=== PATIENT | female | born 1950 | race Caucasian/White ===

== ENCOUNTER 2022-08-24 09:34 | Inpatient (IN) ==
[2022-08-24] MEDS ORDERED: LORazepam 2 mg VIAL 1 ml ONE (10:52)
[2022-08-24] MEDS ORDERED: Haloperidol 5 mg/ml SDV IV/IM 5 MG/ML AMP IM ONE (11:56)
[2022-08-24] MEDS ORDERED: Lorazepam PYXIS KEY PRN (11:56)
[2022-08-24] MEDS ORDERED: LORazepam 2 mg VIAL 1 ml IM ONE (11:56)
[2022-08-24 15:50] LABS: ABS Basophils 0.1 10^3/uL (0.0-0.1); ABS Eosinophils 0.1 10^3/uL (0.0-0.5); ABS Lymphocytes 1.4 10^3/uL (1.0-4.8); ABS Monocytes 0.5 10^3/uL (0.0-0.9); ABS Neutrophils 4.5 10^3/uL (1.5-7.6); ABS Nucleated RBC 0.01 10^3/ul; Eosinophil % 1.8 %; Hematocrit 36.7 % (35-45); Hemoglobin 12.1 g/dL (11.5-14.3); Lymphocyte % 21.7 %; Mean Corpuscular Hemoglobin 29.4 pg (27-33); Mean Corpuscular Volume 89.2 fL (80-97); Mean Platelet Volume 6.8 fL (7.5-11.2); Nucleated Red Blood Cells % 0.1 /100 WBC (0.0-0.4); Platelet Count 207 10^3/uL (150-450); Red Blood Count 4.11 10^6/uL (3.63-4.92); Red Cell Distribution Width 14.2 % (12-17); White Blood Count 6.6 10^3/uL (3.8-11.8)
[2022-08-24 16:06] LABS: ALT 16 U/L (7-52); AST 14 U/L (13-39); Albumin 3.4 g/dL (3.2-5.2); Albumin/Globulin Ratio 1.1 (1-3); Alkaline Phosphatase 76 U/L (35-149); Anion Gap 5 mmol/L (2-16); Blood Urea Nitrogen 14 mg/dL (6-24); CO2 Carbon Dioxide 26 mmol/L (22-32); Calcium 8.9 mg/dL (8.6-10.3); Chloride 106 mmol/L (101-111); Creatinine, Serum 1.47 mg/dL (0.51-0.95); Glucose 108 mg/dL (70-100); Potassium 4.3 mmol/L (3.5-5.0); Sodium 137 mmol/L (135-145); Total Protein 6.4 g/dL (6.4-8.9); eGFR CKD-EPI 37.7 (>60)
[2022-08-24 16:23] LABS: Acetaminophen < 15 mcg/mL; Alcohol, S < 13 mg/dL (<13); Salicylate < 2.50 mg/dL (<30)
[2022-08-24 16:37] LABS: TSH Ultra Thyroid Stim Horm 5.39 mcIU/mL (0.34-5.60)
[2022-08-24] MEDS ORDERED: OLANZapine 5 mg TAB *ODT PO ONE (20:35)
[2022-08-25] MEDS ORDERED: OLANZapine 5 mg TAB *ODT PO ONE (20:37)
[2022-08-25] MEDS ORDERED: Albuterol/Ipratropium NEB.SOL (2.5/0.5 MG) 3 ML NEB.SOLN INH ONE (22:31)
[2022-08-25] MEDS ORDERED: Furosemide 40 mg/4 ml IV VIAL IV SLOW PU ONE (22:48)
[2022-08-25 23:10] LABS: Venous Bicarbonate HCO3 22.9 mmol/L (24-28)
[2022-08-25 23:17] LABS: ABS Eosinophils 0.2 10^3/uL (0.0-0.5); ABS Lymphocytes 1.7 10^3/uL (1.0-4.8); ABS Monocytes 0.5 10^3/uL (0.0-0.9); ABS Neutrophils 4.7 10^3/uL (1.5-7.6); Eosinophil % 2.2 %; Hematocrit 38.6 % (35-45); Hemoglobin 12.6 g/dL (11.5-14.3); Lymphocyte % 23.6 %; Mean Corpuscular Hemoglobin 28.6 pg (27-33); Mean Corpuscular Hgb Conc 32.7 g/dL (31-36); Mean Corpuscular Volume 87.5 fL (80-97); Mean Platelet Volume 6.9 fL (7.5-11.2); Nucleated Red Blood Cells % 0.1 /100 WBC (0.0-0.4); Platelet Count 253 10^3/uL (150-450); Red Blood Count 4.41 10^6/uL (3.63-4.92); Red Cell Distribution Width 13.8 % (12-17)
[2022-08-25 23:27] LABS: Calcium 9.1 mg/dL (8.6-10.3); Creatinine, Serum 1.43 mg/dL (0.51-0.95)
[2022-08-25] MEDS ORDERED: LORazepam 2 mg VIAL 1 ml IV PUSH ONE (23:37)
[2022-08-25] MEDS ORDERED: Lorazepam PYXIS KEY PRN (23:37)
[2022-08-25 23:44] LABS: Urine Appearance Cloudy; Urine Bilirubin Negative (Negative); Urine Blood 2+ (Negative); Urine Color Straw; Urine Glucose Negative (Negative); Urine Ketones Negative (Negative); Urine Nitrite Negative (Negative); Urine Protein Negative (Negative); Urine Specific Gravity 1.004 (1.002-1.030); Urine Urobilinogen Negative (Negative)
[2022-08-25 23:47] LABS: Urine Bacteria 2+ (Absent); Urine Red Blood Cell Trace(0-2/hpf) (Absent); Urine Squamous Epithelial Cell Present (Absent); Urine White Blood Cell 3+(>20/hpf) (Absent)
[2022-08-25 23:57] LABS: Urine Benzodiazepine Screen None Detected (None Detect); Urine Cannabinoids Screen None Detected (None Detect); Urine Opiates Screen None Detected (None Detect)
[2022-08-26] MEDS ORDERED: LORazepam 2 mg VIAL 1 ml IV PUSH ONE (00:15)
[2022-08-26] MEDS ORDERED: Enoxaparin 100 MG/ML SYR SUBCUT SCH (01:00)
[2022-08-26] MEDS ORDERED: Sulfur Hexaflouride MICROSPHR 25 MG VIAL ONE (09:45)
[2022-08-26] MEDS: Furosemide 20 mg/2 ml IV VIAL IV SCH ×2 (13:37→18:31)
[2022-08-26] MEDS: CMCS:Darifenacin 15 mg ER TAB (NF) PO SCH (13:41)
[2022-08-26] MEDS ORDERED: Lorazepam PYXIS KEY PRN (14:09)
[2022-08-26] MEDS: Enoxaparin 40 MG/0.4 ML SYR SUBCUT SCH (18:29)
[2022-08-27 06:13] LABS: ABS Basophils 0.1 10^3/uL (0.0-0.1); ABS Eosinophils 0.2 10^3/uL (0.0-0.5); ABS Lymphocytes 2.2 10^3/uL (1.0-4.8); ABS Monocytes 0.5 10^3/uL (0.0-0.9); ABS Neutrophils 2.9 10^3/uL (1.5-7.6); Eosinophil % 3.5 %; Hematocrit 34.9 % (35-45); Hemoglobin 11.8 g/dL (11.5-14.3); Lymphocyte % 37.3 %; Mean Corpuscular Hemoglobin 29.6 pg (27-33); Mean Corpuscular Hgb Conc 33.7 g/dL (31-36); Mean Corpuscular Volume 87.9 fL (80-97); Mean Platelet Volume 6.9 fL (7.5-11.2); Platelet Count 203 10^3/uL (150-450); Red Blood Count 3.98 10^6/uL (3.63-4.92); Red Cell Distribution Width 13.7 % (12-17); White Blood Count 5.9 10^3/uL (3.8-11.8)
[2022-08-27 06:29] LABS: Calcium 8.5 mg/dL (8.6-10.3); Creatinine, Serum 1.37 mg/dL (0.51-0.95); Potassium 3.5 mmol/L (3.5-5.0)
[2022-08-27] MEDS: CMCS:Darifenacin 15 mg ER TAB (NF) PO SCH (09:41)
[2022-08-27 10:34] LABS: HDL Cholesterol 34.6 mg/dL
[2022-08-27] MEDS ORDERED: Potassium Chlor 20 meq TAB.ER PO ONE (10:39)
[2022-08-27 12:14] LABS: High Sensitivity Troponin 1 Hr 720 pg/mL (<15)
[2022-08-27] MEDS: Furosemide 20 mg/2 ml IV VIAL IV SCH ×2 (14:38→17:47)
[2022-08-27] MEDS: Enoxaparin 40 MG/0.4 ML SYR SUBCUT SCH (17:47)
[2022-08-28 07:31] LABS: ABS Basophils 0.1 10^3/uL (0.0-0.1); ABS Eosinophils 0.2 10^3/uL (0.0-0.5); ABS Lymphocytes 1.9 10^3/uL (1.0-4.8); ABS Monocytes 0.4 10^3/uL (0.0-0.9); ABS Neutrophils 4.7 10^3/uL (1.5-7.6); Eosinophil % 2.7 %; Hematocrit 36.1 % (35-45); Lymphocyte % 25.5 %; Mean Corpuscular Hemoglobin 29.1 pg (27-33); Mean Corpuscular Hgb Conc 33.4 g/dL (31-36); Mean Corpuscular Volume 87.2 fL (80-97); Nucleated Red Blood Cells % 0.1 /100 WBC (0.0-0.4); Platelet Count 258 10^3/uL (150-450); Red Blood Count 4.14 10^6/uL (3.63-4.92); White Blood Count 7.3 10^3/uL (3.8-11.8)
[2022-08-28 07:51] LABS: Albumin 3.4 g/dL (3.2-5.2); Albumin/Globulin Ratio 1.2 (1-3); Calcium 8.7 mg/dL (8.6-10.3); Creatinine, Serum 1.48 mg/dL (0.51-0.95); Globulin 2.9 g/dL (2-4); Magnesium 1.7 mg/dL (1.9-2.7); Potassium 3.6 mmol/L (3.5-5.0); Total Bilirubin 0.2 mg/dL (0.2-1.0); Total Protein 6.3 g/dL (6.4-8.9); eGFR CKD-EPI 37.4 (>60)
[2022-08-28] MEDS ORDERED: Regadenoson 0.4 MG/5 ML SYRINGE ONE (09:42)
[2022-08-28] MEDS: CMCS:Darifenacin 15 mg ER TAB (NF) PO SCH (10:27)
[2022-08-28] MEDS: Furosemide 20 mg/2 ml IV VIAL IV SCH (13:43)
[2022-08-28] MEDS: Enoxaparin 40 MG/0.4 ML SYR SUBCUT SCH (17:15)
[2022-08-29 05:48] LABS: ABS Eosinophils 0.1 10^3/uL (0.0-0.5); ABS Lymphocytes 1.5 10^3/uL (1.0-4.8); ABS Monocytes 0.6 10^3/uL (0.0-0.9); ABS Neutrophils 4.3 10^3/uL (1.5-7.6); ABS Nucleated RBC 0.01 10^3/ul; Eosinophil % 2.2 %; Hematocrit 35.5 % (35-45); Lymphocyte % 23.1 %; Mean Corpuscular Hemoglobin 29.6 pg (27-33); Mean Corpuscular Hgb Conc 33.8 g/dL (31-36); Mean Corpuscular Volume 87.7 fL (80-97); Mean Platelet Volume 6.9 fL (7.5-11.2); Nucleated Red Blood Cells % 0.1 /100 WBC (0.0-0.4); Platelet Count 205 10^3/uL (150-450); Red Blood Count 4.05 10^6/uL (3.63-4.92); Red Cell Distribution Width 13.8 % (12-17); White Blood Count 6.6 10^3/uL (3.8-11.8)
[2022-08-29 06:05] LABS: Calcium 8.7 mg/dL (8.6-10.3); Creatinine, Serum 1.38 mg/dL (0.51-0.95); Magnesium 1.9 mg/dL (1.9-2.7); Potassium 3.7 mmol/L (3.5-5.0); eGFR CKD-EPI 40.7 (>60)
[2022-08-29] MEDS: CMCS:Darifenacin 15 mg ER TAB (NF) PO SCH (07:51)
[2022-08-29] MEDS: Enoxaparin 40 MG/0.4 ML SYR SUBCUT SCH (18:18)
[2022-08-30] MEDS: CMCS:Darifenacin 15 mg ER TAB (NF) PO SCH (10:18)
[2022-08-30] MEDS: Enoxaparin 40 MG/0.4 ML SYR SUBCUT SCH (17:41)
[2022-08-31] MEDS: CMCS:Darifenacin 15 mg ER TAB (NF) PO SCH (09:11)
[2022-08-31] MEDS: Enoxaparin 40 MG/0.4 ML SYR SUBCUT SCH (17:01)
[2022-09-01] MEDS: CMCS:Darifenacin 15 mg ER TAB (NF) PO SCH (08:23)
[2022-09-01] MEDS: Enoxaparin 40 MG/0.4 ML SYR SUBCUT SCH (17:13)
[2022-09-02] MEDS: CMCS:Darifenacin 15 mg ER TAB (NF) PO SCH (08:20)
[2022-09-02] MEDS: Enoxaparin 40 MG/0.4 ML SYR SUBCUT SCH (16:47)
[2022-09-02] MEDS ORDERED: Ketamine HCL 50 mg/ml 10 ml VIAL (500 MG) ONE (20:28)
[2022-09-02] MEDS ORDERED: Rocuronium 50 mg VIAL 10 mg/ml 5 ml VIAL (50 mg) ONE (20:28)
[2022-09-02] MEDS ORDERED: fentaNYL 100 mcg/2 ml 50 MCG/ML VIAL IV SLOW PU ONE ×2 (21:10→22:00)
[2022-09-02] MEDS ORDERED: fentaNYL 100 mcg/2 ml 50 MCG/ML VIAL ONE ×2 (21:12→22:02)
[2022-09-02 21:35] LABS: PCO2 Arterial 72 mmHg (35-45); PO2 Arterial 54 mmHg (80-100)
[2022-09-02] MEDS ORDERED: Midazolam 2 mg/2 ml VIAL 1 mg/ml 2 ml VIAL (2 mg) ONE (21:37)
[2022-09-02] MEDS ORDERED: Midazolam 2 mg/2 ml VIAL 1 mg/ml 2 ml VIAL (2 mg) IV SLOW PU ONE (21:38)
[2022-09-02] MEDS ORDERED: Furosemide 40 mg/4 ml IV VIAL ONE (21:38)
[2022-09-02] MEDS ORDERED: Furosemide 40 mg/4 ml IV VIAL IV SLOW PU ONE (21:39)
[2022-09-02] MEDS ORDERED: Propofol 10 mg/ml 100 ML BTL 1,000 MG/100 ML BTL ONE (21:44)
[2022-09-02 21:55] LABS: ABS Basophils 0.1 10^3/uL (0.0-0.1); ABS Eosinophils 0.1 10^3/uL (0.0-0.5); ABS Monocytes 0.5 10^3/uL (0.0-0.9); ABS Neutrophils 12.9 10^3/uL (1.5-7.6); ABS Nucleated RBC 0.01 10^3/ul; Eosinophil % 0.5 %; Hematocrit 40.2 % (35-45); Lymphocyte % 22.6 %; Mean Corpuscular Hgb Conc 32.4 g/dL (31-36); Mean Corpuscular Volume 89.4 fL (80-97); Platelet Count 317 10^3/uL (150-450); Red Cell Distribution Width 14.4 % (12-17); White Blood Count 17.6 10^3/uL (3.8-11.8)
[2022-09-02] MEDS ORDERED: fentaNYL INFUSION 50 mcg/mL VL 2,500 MCG/50 ML VIAL IV SCH (22:00)
[2022-09-02] MEDS: Propofol 10 mg/ml 100 ML BTL 1,000 MG/100 ML BTL IV SCH ×2 (22:03→23:57)
[2022-09-02 22:10] LABS: Albumin 3.4 g/dL (3.2-5.2); Albumin/Globulin Ratio 1.2 (1-3); Calcium 8.9 mg/dL (8.6-10.3); Creatinine, Serum 1.29 mg/dL (0.51-0.95); Globulin 2.9 g/dL (2-4); Potassium 4.3 mmol/L (3.5-5.0); Total Bilirubin 0.2 mg/dL (0.2-1.0); Total Protein 6.3 g/dL (6.4-8.9); eGFR CKD-EPI 44.1 (>60)
[2022-09-02] MEDS ORDERED: Norepinephrine 16MCG/ML BAGD5W 4,000 MCG/250 ML BAG IV ONE (23:16)
[2022-09-02] MEDS ORDERED: Piperacillin/Tazobac ADVAN 3.375 GM in NS 0.9% 100 ml BAG 100 ML IV ONE (23:32)
[2022-09-02] MEDS ORDERED: Zosyn per Pharmacy NOTE FOLLOW UP SCH (23:45)
[2022-09-02] MEDS ORDERED: Norepinephrine 16MCG/ML BAGD5W 4,000 MCG/250 ML BAG IV SCH (23:45)
[2022-09-03 00:04] LABS: High Sensitivity Troponin 1 Hr 330 pg/mL (<15)
[2022-09-03 00:43] LABS: Urine Appearance Cloudy; Urine Bilirubin Negative (Negative); Urine Blood Negative (Negative); Urine Color Yellow; Urine Glucose Negative (Negative); Urine Ketones Negative (Negative); Urine Nitrite Negative (Negative); Urine Protein Negative (Negative); Urine Specific Gravity 1.009 (1.002-1.030); Urine Urobilinogen Negative (Negative)
[2022-09-03 00:47] LABS: Urine Bacteria 1+ (Absent); Urine Red Blood Cell Trace(0-2/hpf) (Absent); Urine Squamous Epithelial Cell Present (Absent); Urine White Blood Cell 1+(6-10/hpf) (Absent)
[2022-09-03] MEDS: Propofol 10 mg/ml 100 ML BTL 1,000 MG/100 ML BTL IV SCH ×5 (03:24→19:58)
[2022-09-03] MEDS: Norepinephrine 16MCG/ML BAGD5W 4,000 MCG/250 ML BAG IV SCH ×2 (03:57→09:53)
[2022-09-03 04:13] LABS: Hematocrit 37.1 % (35-45); Mean Corpuscular Hemoglobin 28.4 pg (27-33); Mean Corpuscular Hgb Conc 32.5 g/dL (31-36); Mean Corpuscular Volume 87.4 fL (80-97); Mean Platelet Volume 6.8 fL (7.5-11.2); Platelet Count 273 10^3/uL (150-450); Red Blood Count 4.24 10^6/uL (3.63-4.92); Red Cell Distribution Width 14.1 % (12-17)
[2022-09-03 04:38] LABS: Albumin 3.1 g/dL (3.2-5.2); Calcium 8.3 mg/dL (8.6-10.3); Magnesium 1.8 mg/dL (1.9-2.7); Potassium 4.5 mmol/L (3.5-5.0); Total Bilirubin 0.3 mg/dL (0.2-1.0)
[2022-09-03 04:44] LABS: Albumin/Globulin Ratio 1.2 (1-3); Creatinine, Serum 1.37 mg/dL (0.51-0.95); Globulin 2.5 g/dL (2-4); Total Protein 5.6 g/dL (6.4-8.9)
[2022-09-03] MEDS: Chlorhexidine MOUTHWASH 0.12% 15 ML UDC TOPICAL SCH ×7 (05:27→20:04)
[2022-09-03 05:38] LABS: ABS Basophils 0.1 10^3/uL (0.0-0.1); ABS Lymphocytes 1.9 10^3/uL (1.0-4.8); ABS Monocytes 0.8 10^3/uL (0.0-0.9); ABS Neutrophils 16.2 10^3/uL (1.5-7.6); ABS Nucleated RBC 0.03 10^3/ul; Eosinophil % 0.1 %; Lymphocyte % 10.2 %; Nucleated Red Blood Cells % 0.1 /100 WBC (0.0-0.4)
[2022-09-03] MEDS: CMCS:Darifenacin 15 mg ER TAB (NF) PO SCH (08:41)
[2022-09-03] MEDS: Valproic Acid LIQ 250 MG/5 ML UDC PO SCH ×3 (10:10→20:05)
[2022-09-03] MEDS ORDERED: ZOSYN 3.375 GM x ONE DOSE over 30 miuntes IV (11:00)
[2022-09-03] MEDS ORDERED: Piperacillin/Tazobac ADVAN 3.375 GM in NS 0.9% 100 ml BAG 100 ML IV SCH (11:00)
[2022-09-03] MEDS ORDERED: Sulfur Hexaflouride MICROSPHR 25 MG VIAL ONE (11:43)
[2022-09-03 14:07] LABS: High Sensitivity Troponin 3 Hr 315 pg/mL (<15)
[2022-09-03] MEDS: Piperacillin/Tazobac ADVAN 3.375 GM in NS 0.9% 100 ml BAG 100 ML IV SCH (16:29)
[2022-09-03] MEDS: Enoxaparin 40 MG/0.4 ML SYR SUBCUT SCH (17:09)
[2022-09-03] MEDS ORDERED: Valproic Acid IV 1,000 MG in NS 0.9% 100 ml BAG 100 ML IVPB ONE (17:45)
[2022-09-04] MEDS: Chlorhexidine MOUTHWASH 0.12% 15 ML UDC TOPICAL SCH ×6 (01:05→20:31)
[2022-09-04] MEDS: Propofol 10 mg/ml 100 ML BTL 1,000 MG/100 ML BTL IV SCH ×5 (01:11→20:30)
[2022-09-04] MEDS: Piperacillin/Tazobac ADVAN 3.375 GM in NS 0.9% 100 ml BAG 100 ML IV SCH ×3 (01:49→17:02)
[2022-09-04 04:12] LABS: ABS Monocytes 0.2 10^3/uL (0.0-0.9); ABS Neutrophils 11.4 10^3/uL (1.5-7.6); Eosinophil % 0.2 %; Hematocrit 34.1 % (35-45); Hemoglobin 11.4 g/dL (11.5-14.3); Mean Corpuscular Hemoglobin 29.2 pg (27-33); Mean Corpuscular Hgb Conc 33.3 g/dL (31-36); Mean Corpuscular Volume 87.9 fL (80-97); Platelet Count 183 10^3/uL (150-450); Red Blood Count 3.88 10^6/uL (3.63-4.92); Red Cell Distribution Width 14.2 % (12-17); White Blood Count 12.6 10^3/uL (3.8-11.8)
[2022-09-04] MEDS: Norepinephrine 16MCG/ML BAGD5W 4,000 MCG/250 ML BAG IV SCH ×2 (04:51→17:15)
[2022-09-04 05:43] LABS: Albumin/Globulin Ratio 1.1 (1-3); Calcium 8.6 mg/dL (8.6-10.3); Creatinine, Serum 1.19 mg/dL (0.51-0.95); Globulin 2.8 g/dL (2-4); Magnesium 2.1 mg/dL (1.9-2.7); Total Bilirubin 0.4 mg/dL (0.2-1.0); Total Protein 5.8 g/dL (6.4-8.9); eGFR CKD-EPI 48.6 (>60)
[2022-09-04] MEDS ORDERED: Iodixanol (CONTRAST) 320 MG/ML 100 ML SDV IV ONE (08:17)
[2022-09-04] MEDS: Valproic Acid LIQ 250 MG/5 ML UDC PO SCH ×3 (08:30→21:06)
[2022-09-04] MEDS: CMCS:Darifenacin 15 mg ER TAB (NF) PO SCH ×2 (08:30→08:51)
[2022-09-04 12:30] LABS: INR 1.17 (0.88-1.18)
[2022-09-04] MEDS ORDERED: Furosemide 40 mg/4 ml IV VIAL IV ONE (13:02)
[2022-09-04 18:24] LABS: Calcium 8.6 mg/dL (8.6-10.3); Creatinine, Serum 1.21 mg/dL (0.51-0.95); Potassium 3.7 mmol/L (3.5-5.0); eGFR CKD-EPI 47.6 (>60)
[2022-09-05] MEDS: Piperacillin/Tazobac ADVAN 3.375 GM in NS 0.9% 100 ml BAG 100 ML IV SCH ×3 (00:06→17:12)
[2022-09-05] MEDS: Chlorhexidine MOUTHWASH 0.12% 15 ML UDC TOPICAL SCH ×3 (01:02→08:38)
[2022-09-05] MEDS: Propofol 10 mg/ml 100 ML BTL 1,000 MG/100 ML BTL IV SCH ×2 (01:02→05:36)
[2022-09-05 04:27] LABS: ABS Lymphocytes 1.2 10^3/uL (1.0-4.8); ABS Monocytes 0.4 10^3/uL (0.0-0.9); ABS Neutrophils 10.5 10^3/uL (1.5-7.6); Eosinophil % 0.1 %; Hematocrit 31.6 % (35-45); Hemoglobin 10.5 g/dL (11.5-14.3); Lymphocyte % 9.7 %; Mean Corpuscular Hemoglobin 29.1 pg (27-33); Mean Corpuscular Hgb Conc 33.3 g/dL (31-36); Mean Corpuscular Volume 87.4 fL (80-97); Mean Platelet Volume 6.7 fL (7.5-11.2); Platelet Count 167 10^3/uL (150-450); Red Blood Count 3.62 10^6/uL (3.63-4.92); White Blood Count 12.1 10^3/uL (3.8-11.8)
[2022-09-05] MEDS: Norepinephrine 16MCG/ML BAGD5W 4,000 MCG/250 ML BAG IV SCH (04:37)
[2022-09-05 04:44] LABS: Albumin 2.8 g/dL (3.2-5.2); Calcium 8.2 mg/dL (8.6-10.3); Creatinine, Serum 1.26 mg/dL (0.51-0.95); Globulin 2.7 g/dL (2-4); Magnesium 2.2 mg/dL (1.9-2.7); Phosphorus 4.6 mg/dL (2.5-5.0); Potassium 3.9 mmol/L (3.5-5.0); Total Bilirubin 0.3 mg/dL (0.2-1.0); Total Protein 5.5 g/dL (6.4-8.9); eGFR CKD-EPI 45.4 (>60)
[2022-09-05] MEDS ORDERED: Furosemide 40 mg/4 ml IV VIAL IV ONE (09:05)
[2022-09-05] MEDS: CMCS:Darifenacin 15 mg ER TAB (NF) PO SCH (09:17)
[2022-09-05] MEDS: Valproic Acid LIQ 250 MG/5 ML UDC PO SCH (09:19)
[2022-09-05 15:21] LABS: Calcium 8.3 mg/dL (8.6-10.3); Creatinine, Serum 1.27 mg/dL (0.51-0.95); Potassium 3.7 mmol/L (3.5-5.0); eGFR CKD-EPI 44.9 (>60)
[2022-09-05] MEDS ORDERED: Potassium Chloride LIQUID 20 MEQ/15 ML LIQUID PO ONE (17:16)
[2022-09-05] MEDS ORDERED: Potassium Chlor 20 meq TAB.ER PO ONE (17:22)
[2022-09-05] MEDS: Valproic Acid IV 500 MG in NS 0.9% 100 ml BAG 100 ML IVPB SCH (17:24)
[2022-09-05] MEDS: KCL 20 MEQ/100 ML IVPREMIX 20 MEQ/100 ML BAG IV SCH ×2 (18:19→20:28)
[2022-09-06] MEDS: Piperacillin/Tazobac ADVAN 3.375 GM in NS 0.9% 100 ml BAG 100 ML IV SCH ×3 (00:40→18:39)
[2022-09-06] MEDS: Valproic Acid IV 500 MG in NS 0.9% 100 ml BAG 100 ML IVPB SCH ×2 (00:46→04:29)
[2022-09-06 04:39] LABS: ABS Basophils 0.1 10^3/uL (0.0-0.1); ABS Eosinophils 0.5 10^3/uL (0.0-0.5); ABS Lymphocytes 1.8 10^3/uL (1.0-4.8); ABS Monocytes 0.4 10^3/uL (0.0-0.9); ABS Neutrophils 5.3 10^3/uL (1.5-7.6); ABS Nucleated RBC 0.01 10^3/ul; Eosinophil % 5.9 %; Hematocrit 32.5 % (35-45); Hemoglobin 10.7 g/dL (11.5-14.3); Lymphocyte % 22.5 %; Mean Corpuscular Hemoglobin 28.8 pg (27-33); Mean Corpuscular Hgb Conc 32.8 g/dL (31-36); Mean Corpuscular Volume 87.6 fL (80-97); Mean Platelet Volume 7.3 fL (7.5-11.2); Nucleated Red Blood Cells % 0.1 /100 WBC (0.0-0.4); Platelet Count 119 10^3/uL (150-450); Red Cell Distribution Width 14.2 % (12-17); White Blood Count 8.1 10^3/uL (3.8-11.8)
[2022-09-06 04:55] LABS: Calcium 8.3 mg/dL (8.6-10.3); Creatinine, Serum 1.33 mg/dL (0.51-0.95); eGFR CKD-EPI 42.5 (>60)
[2022-09-06] MEDS: CMCS:Darifenacin 15 mg ER TAB (NF) PO SCH (09:42)
[2022-09-06] MEDS: Pantoprazole VIAL 40 MG VIAL IV SCH (09:43)
[2022-09-07] MEDS: Piperacillin/Tazobac ADVAN 3.375 GM in NS 0.9% 100 ml BAG 100 ML IV SCH ×3 (01:30→16:42)
[2022-09-07 05:21] LABS: ABS Eosinophils 0.5 10^3/uL (0.0-0.5); ABS Lymphocytes 1.8 10^3/uL (1.0-4.8); ABS Monocytes 0.5 10^3/uL (0.0-0.9); ABS Neutrophils 3.8 10^3/uL (1.5-7.6); ABS Nucleated RBC 0.03 10^3/ul; Eosinophil % 7.1 %; Hematocrit 34.2 % (35-45); Hemoglobin 11.2 g/dL (11.5-14.3); Lymphocyte % 26.8 %; Mean Corpuscular Hemoglobin 29.6 pg (27-33); Mean Corpuscular Hgb Conc 32.7 g/dL (31-36); Mean Corpuscular Volume 90.4 fL (80-97); Mean Platelet Volume 7.7 fL (7.5-11.2); Nucleated Red Blood Cells % 0.4 /100 WBC (0.0-0.4); Platelet Count 98 10^3/uL (150-450); Red Blood Count 3.79 10^6/uL (3.63-4.92); Red Cell Distribution Width 14.9 % (12-17); White Blood Count 6.6 10^3/uL (3.8-11.8)
[2022-09-07 05:23] LABS: Blood Urea Nitrogen 30 mg/dL (6-24); CO2 Carbon Dioxide 29 mmol/L (22-32); Calcium 7.6 mg/dL (8.6-10.3); Chloride 105 mmol/L (101-111); Creatinine, Serum 1.14 mg/dL (0.51-0.95); Glucose 95 mg/dL (70-100); Sodium 141 mmol/L (135-145); eGFR CKD-EPI 51.1 (>60)
[2022-09-07 05:26] LABS: Anion Gap 7 mmol/L (2-16)
[2022-09-07 08:02] LABS: Potassium Redraw 4.3 mmol/L (3.5-5.0)
[2022-09-07] MEDS: Pantoprazole VIAL 40 MG VIAL IV SCH (09:35)
[2022-09-07] MEDS: CMCS:Darifenacin 15 mg ER TAB (NF) PO SCH (09:49)
[2022-09-07] MEDS: LORazepam 2 mg VIAL 1 ml IV PUSH PRN (21:27)
[2022-09-08] MEDS: Piperacillin/Tazobac ADVAN 3.375 GM in NS 0.9% 100 ml BAG 100 ML IV SCH ×3 (00:30→15:27)
[2022-09-08 08:26] LABS: Hematocrit 38.3 % (35-45); Hemoglobin 12.5 g/dL (11.5-14.3); Mean Corpuscular Hemoglobin 28.8 pg (27-33); Mean Corpuscular Hgb Conc 32.6 g/dL (31-36); Mean Corpuscular Volume 88.4 fL (80-97); Mean Platelet Volume 7.4 fL (7.5-11.2); Platelet Count 128 10^3/uL (150-450); Red Blood Count 4.33 10^6/uL (3.63-4.92); Red Cell Distribution Width 14.3 % (12-17); White Blood Count 6.9 10^3/uL (3.8-11.8)
[2022-09-08 08:47] LABS: Calcium 8.3 mg/dL (8.6-10.3); Creatinine, Serum 1.24 mg/dL (0.51-0.95); Potassium 4.1 mmol/L (3.5-5.0); eGFR CKD-EPI 46.2 (>60)
[2022-09-08 09:00] LABS: ABS Eosinophils 0.3 10^3/uL (0.0-0.5); ABS Lymphocytes 1.6 10^3/uL (1.0-4.8); ABS Monocytes 0.6 10^3/uL (0.0-0.9); ABS Neutrophils 4.3 10^3/uL (1.5-7.6); ABS Nucleated RBC 0.01 10^3/ul; Eosinophil % 4.9 %; Lymphocyte % 23.8 %; Nucleated Red Blood Cells % 0.1 /100 WBC (0.0-0.4)
[2022-09-08] MEDS: Pantoprazole VIAL 40 MG VIAL IV SCH (09:36)
[2022-09-08] MEDS: CMCS:Darifenacin 15 mg ER TAB (NF) PO SCH (09:37)
[2022-09-08] MEDS: LORazepam 2 mg VIAL 1 ml IV PUSH PRN (21:24)
[2022-09-09] MEDS: Piperacillin/Tazobac ADVAN 3.375 GM in NS 0.9% 100 ml BAG 100 ML IV SCH ×3 (00:50→16:18)
[2022-09-09] MEDS: LORazepam 2 mg VIAL 1 ml IV PUSH PRN (03:23)
[2022-09-09 06:57] LABS: ABS Eosinophils 0.3 10^3/uL (0.0-0.5); ABS Monocytes 0.8 10^3/uL (0.0-0.9); ABS Neutrophils 3.4 10^3/uL (1.5-7.6); Eosinophil % 5.3 %; Hemoglobin 10.6 g/dL (11.5-14.3); Lymphocyte % 30.4 %; Mean Corpuscular Hemoglobin 29.7 pg (27-33); Mean Corpuscular Hgb Conc 33.2 g/dL (31-36); Mean Corpuscular Volume 89.4 fL (80-97); Mean Platelet Volume 7.3 fL (7.5-11.2); Platelet Count 104 10^3/uL (150-450); Red Blood Count 3.58 10^6/uL (3.63-4.92); White Blood Count 6.5 10^3/uL (3.8-11.8)
[2022-09-09 07:10] LABS: Creatinine, Serum 1.28 mg/dL (0.51-0.95); Magnesium 1.9 mg/dL (1.9-2.7); Potassium 3.7 mmol/L (3.5-5.0); eGFR CKD-EPI 44.5 (>60)
[2022-09-09] MEDS ORDERED: Valproic Acid IV 1,000 MG in NS 0.9% 100 ml BAG 100 ML IVPB ONE (11:00)
[2022-09-09] MEDS: CMCS:Darifenacin 15 mg ER TAB (NF) PO SCH ×2 (13:11→13:30)
[2022-09-09] MEDS ORDERED: Magnesium Sulfate IV 1GM/100ML 1 GM/100 ML BAG IV ONE (13:28)
[2022-09-09] MEDS ORDERED: Potassium EFFERVES 25 meq TAB PO ONE (16:45)
[2022-09-10] MEDS: LORazepam 2 mg VIAL 1 ml IV PUSH PRN ×2 (00:27→06:17)
[2022-09-10] MEDS: Piperacillin/Tazobac ADVAN 3.375 GM in NS 0.9% 100 ml BAG 100 ML IV SCH ×3 (00:31→15:56)
[2022-09-10 06:52] LABS: Hematocrit 34.9 % (35-45); Hemoglobin 11.4 g/dL (11.5-14.3); Mean Corpuscular Hemoglobin 29.2 pg (27-33); Mean Corpuscular Hgb Conc 32.8 g/dL (31-36); Mean Corpuscular Volume 88.9 fL (80-97); Mean Platelet Volume 7.2 fL (7.5-11.2); Platelet Count 108 10^3/uL (150-450); Red Blood Count 3.92 10^6/uL (3.63-4.92); Red Cell Distribution Width 14.1 % (12-17); White Blood Count 7.1 10^3/uL (3.8-11.8)
[2022-09-10 07:07] LABS: Calcium 8.4 mg/dL (8.6-10.3); Creatinine, Serum 1.31 mg/dL (0.51-0.95); Magnesium 2.2 mg/dL (1.9-2.7); eGFR CKD-EPI 43.3 (>60)
[2022-09-10] MEDS ORDERED: Lactated Ringers 1000 ml BAG 500 ML IV ONE (10:19)
[2022-09-10] MEDS: CMCS:Darifenacin 15 mg ER TAB (NF) PO SCH (11:01)
[2022-09-10 12:40] LABS: HIT ELISA 0.096 OD (<0.400); Heparin PF4 Antibody Interp Negative (Negative)
[2022-09-10] MEDS ORDERED: Albuterol/Ipratropium NEB.SOL (2.5/0.5 MG) 3 ML NEB.SOLN INH ONE (21:49)
[2022-09-10] MEDS ORDERED: Furosemide 40 mg/4 ml IV VIAL IV ONE (21:55)
[2022-09-10 22:11] LABS: ABS Basophils 0.1 10^3/uL (0.0-0.1); ABS Eosinophils 0.3 10^3/uL (0.0-0.5); ABS Lymphocytes 1.6 10^3/uL (1.0-4.8); ABS Monocytes 0.7 10^3/uL (0.0-0.9); ABS Neutrophils 4.8 10^3/uL (1.5-7.6); Hemoglobin 11.5 g/dL (11.5-14.3); Mean Corpuscular Hemoglobin 28.9 pg (27-33); Mean Corpuscular Hgb Conc 32.9 g/dL (31-36); Mean Corpuscular Volume 87.9 fL (80-97); Platelet Count 125 10^3/uL (150-450); Red Blood Count 3.98 10^6/uL (3.63-4.92); Red Cell Distribution Width 14.4 % (12-17); White Blood Count 7.4 10^3/uL (3.8-11.8)
[2022-09-10 22:12] LABS: Eosinophil % 3.4 %; Lymphocyte % 21.7 %
[2022-09-10 22:19] LABS: PCO2 Arterial 46 mmHg (35-45); PO2 Arterial 82 mmHg (80-100)
[2022-09-10 22:29] LABS: Albumin/Globulin Ratio 1.1 (1-3); Calcium 8.7 mg/dL (8.6-10.3); Creatinine, Serum 1.24 mg/dL (0.51-0.95); Globulin 2.8 g/dL (2-4); Potassium 4.3 mmol/L (3.5-5.0); Total Bilirubin 0.4 mg/dL (0.2-1.0); Total Protein 5.8 g/dL (6.4-8.9); eGFR CKD-EPI 46.2 (>60)
[2022-09-11] MEDS: Piperacillin/Tazobac ADVAN 3.375 GM in NS 0.9% 100 ml BAG 100 ML IV SCH ×4 (00:13→23:38)
[2022-09-11] MEDS ORDERED: Potassium Chlor 20 meq TAB.ER PO ONE (02:23)
[2022-09-11 02:40] LABS: Magnesium 2.1 mg/dL (1.9-2.7)
[2022-09-11 06:30] LABS: Hematocrit 31.8 % (35-45); Hemoglobin 10.5 g/dL (11.5-14.3); Mean Corpuscular Hemoglobin 29.5 pg (27-33); Mean Corpuscular Hgb Conc 33.1 g/dL (31-36); Mean Corpuscular Volume 89.2 fL (80-97); Mean Platelet Volume 7.1 fL (7.5-11.2); Platelet Count 108 10^3/uL (150-450); Red Blood Count 3.57 10^6/uL (3.63-4.92); Red Cell Distribution Width 14.3 % (12-17); White Blood Count 7.1 10^3/uL (3.8-11.8)
[2022-09-11 06:56] LABS: Calcium 8.4 mg/dL (8.6-10.3); Creatinine, Serum 1.32 mg/dL (0.51-0.95); Potassium 4.2 mmol/L (3.5-5.0); eGFR CKD-EPI 42.9 (>60)
[2022-09-11] MEDS: CMCS:Darifenacin 15 mg ER TAB (NF) PO SCH (07:34)
[2022-09-11] MEDS: LORazepam 2 mg VIAL 1 ml IV PUSH PRN ×3 (08:15→23:36)
[2022-09-11] MEDS ORDERED: Furosemide 40 mg/4 ml IV VIAL IV ONE (12:14)
[2022-09-11] MEDS ORDERED: Magnesium Sulfate 2 gm BAG 2 GM/50 ML BAG IVPB ONE (13:18)
[2022-09-11] MEDS ORDERED: Magnesium Hydroxide LIQ 30 ML UDC PO PRN (18:27)
[2022-09-11] MEDS ORDERED: Polyethylene Glycol 3350 17 GM PACKET PO PRN (18:27)
[2022-09-11] MEDS: Magnesium Hydroxide LIQ 30 ML UDC PO SCH (21:21)
[2022-09-11] MEDS: Senna TAB 8.6 mg TAB PO PRN (21:21)
[2022-09-11 23:51] LABS: Urine Appearance Cloudy; Urine Bilirubin Negative (Negative); Urine Blood 2+ (Negative); Urine Color Yellow; Urine Glucose Negative (Negative); Urine Ketones Negative (Negative); Urine Nitrite Negative (Negative); Urine Protein 1+(30 mg/dL) (Negative); Urine Specific Gravity 1.018 (1.002-1.030); Urine Urobilinogen Negative (Negative)
[2022-09-12] MEDS ORDERED: Lorazepam PYXIS KEY PRN (00:10)
[2022-09-12] MEDS ORDERED: LORazepam 2 mg VIAL 1 ml IV PUSH ONE (00:11)
[2022-09-12 00:20] LABS: Urine Bacteria 1+ (Absent); Urine Red Blood Cell 3+(>10/hpf) (Absent); Urine Squamous Epithelial Cell Present (Absent); Urine White Blood Cell 3+(>20/hpf) (Absent)
[2022-09-12] MEDS ORDERED: Furosemide 40 mg/4 ml IV VIAL IV ONE (00:37)
[2022-09-12] MEDS ORDERED: Furosemide 40 mg/4 ml IV VIAL ONE (00:38)
[2022-09-12] MEDS ORDERED: Albuterol/Ipratropium NEB.SOL (2.5/0.5 MG) 3 ML NEB.SOLN INH ONE (00:59)
[2022-09-12 04:35] LABS: Hematocrit 31.8 % (35-45); Hemoglobin 10.6 g/dL (11.5-14.3); Mean Corpuscular Hemoglobin 29.4 pg (27-33); Mean Corpuscular Hgb Conc 33.3 g/dL (31-36); Mean Corpuscular Volume 88.2 fL (80-97); Platelet Count 120 10^3/uL (150-450); Red Blood Count 3.61 10^6/uL (3.63-4.92); Red Cell Distribution Width 14.6 % (12-17); White Blood Count 9.7 10^3/uL (3.8-11.8)
[2022-09-12 04:53] LABS: Calcium 8.2 mg/dL (8.6-10.3); Creatinine, Serum 1.42 mg/dL (0.51-0.95); Magnesium 2.4 mg/dL (1.9-2.7); Potassium 4.2 mmol/L (3.5-5.0); eGFR CKD-EPI 39.3 (>60)
[2022-09-12] MEDS: Piperacillin/Tazobac ADVAN 3.375 GM in NS 0.9% 100 ml BAG 100 ML IV SCH (09:06)
[2022-09-12] MEDS: Furosemide 40 mg/4 ml IV VIAL IV SCH ×2 (09:29→11:53)
[2022-09-12] MEDS: CMCS:Darifenacin 15 mg ER TAB (NF) PO SCH (09:33)
[2022-09-12] MEDS ORDERED: Furosemide 100 mg/10 ml IV 100 MG in NS 0.9% 100 ml BAG 90 ML IV SCH (10:00)
[2022-09-12] MEDS: Magnesium Hydroxide LIQ 30 ML UDC PO SCH ×2 (11:14→20:15)
[2022-09-12] MEDS ORDERED: Furosemide 40 mg/4 ml IV VIAL IV SLOW PU ONE (15:58)
[2022-09-12] MEDS: Furosemide 100 mg/10 ml IV 100 MG in NS 0.9% 100 ml BAG 90 ML IV SCH ×2 (16:25→21:36)
[2022-09-12] MEDS: LORazepam 2 mg VIAL 1 ml IV PUSH PRN (21:09)
[2022-09-12 22:18] LABS: Calcium 8.2 mg/dL (8.6-10.3); Creatinine, Serum 1.52 mg/dL (0.51-0.95); eGFR CKD-EPI 36.2 (>60)
[2022-09-12 22:35] LABS: Potassium 4.4 mmol/L (3.5-5.0)
[2022-09-13] MEDS: Furosemide 100 mg/10 ml IV 100 MG in NS 0.9% 100 ml BAG 90 ML IV SCH (02:50)
[2022-09-13] MEDS: LORazepam 2 mg VIAL 1 ml IV PUSH PRN (04:49)
[2022-09-13 04:50] LABS: ABS Basophils 0.1 10^3/uL (0.0-0.1); ABS Eosinophils 0.2 10^3/uL (0.0-0.5); ABS Lymphocytes 1.7 10^3/uL (1.0-4.8); ABS Monocytes 1.4 10^3/uL (0.0-0.9); ABS Neutrophils 5.2 10^3/uL (1.5-7.6); Eosinophil % 2.3 %; Hematocrit 33.1 % (35-45); Hemoglobin 11.2 g/dL (11.5-14.3); Lymphocyte % 19.8 %; Mean Corpuscular Hemoglobin 29.5 pg (27-33); Mean Corpuscular Hgb Conc 33.7 g/dL (31-36); Mean Corpuscular Volume 87.5 fL (80-97); Mean Platelet Volume 7.2 fL (7.5-11.2); Platelet Count 127 10^3/uL (150-450); Red Blood Count 3.78 10^6/uL (3.63-4.92); Red Cell Distribution Width 14.7 % (12-17); White Blood Count 8.5 10^3/uL (3.8-11.8)
[2022-09-13 05:07] LABS: Calcium 8.5 mg/dL (8.6-10.3); Creatinine, Serum 1.52 mg/dL (0.51-0.95); Magnesium 2.1 mg/dL (1.9-2.7); Potassium 3.9 mmol/L (3.5-5.0); eGFR CKD-EPI 36.2 (>60)
[2022-09-13] MEDS ORDERED: Potassium Chlor 20 meq TAB.ER PO ONE (06:10)
[2022-09-13] MEDS: CMCS:Darifenacin 15 mg ER TAB (NF) PO SCH (09:03)
[2022-09-13] MEDS: Furosemide 40 mg/4 ml IV VIAL IV SCH (09:06)
[2022-09-13] MEDS: Magnesium Hydroxide LIQ 30 ML UDC PO SCH ×2 (09:06→20:54)
[2022-09-13] MEDS ORDERED: LORazepam 2 mg VIAL 1 ml IV PUSH ONE (21:01)
[2022-09-13] MEDS ORDERED: Lorazepam PYXIS KEY PRN (21:01)
[2022-09-14 06:56] LABS: ABS Basophils 0.1 10^3/uL (0.0-0.1); ABS Eosinophils 0.2 10^3/uL (0.0-0.5); ABS Lymphocytes 1.5 10^3/uL (1.0-4.8); ABS Neutrophils 4.7 10^3/uL (1.5-7.6); Eosinophil % 2.7 %; Hematocrit 29.5 % (35-45); Hemoglobin 9.7 g/dL (11.5-14.3); Lymphocyte % 19.6 %; Mean Corpuscular Volume 87.9 fL (80-97); Mean Platelet Volume 6.5 fL (7.5-11.2); Nucleated Red Blood Cells % 0.1 /100 WBC (0.0-0.4); Platelet Count 119 10^3/uL (150-450); Red Blood Count 3.35 10^6/uL (3.63-4.92); Red Cell Distribution Width 14.7 % (12-17); White Blood Count 7.5 10^3/uL (3.8-11.8)
[2022-09-14 07:15] LABS: Calcium 8.6 mg/dL (8.6-10.3); Creatinine, Serum 1.33 mg/dL (0.51-0.95); Magnesium 2.1 mg/dL (1.9-2.7); Potassium 3.6 mmol/L (3.5-5.0); eGFR CKD-EPI 42.5 (>60)
[2022-09-14] MEDS: CMCS:Darifenacin 15 mg ER TAB (NF) PO SCH (08:47)
[2022-09-14] MEDS: Magnesium Hydroxide LIQ 30 ML UDC PO SCH ×2 (08:49→21:57)
[2022-09-14] MEDS: Furosemide 40 mg/4 ml IV VIAL IV SCH (08:49)
[2022-09-14] MEDS: Senna TAB 8.6 mg TAB PO PRN (21:56)
[2022-09-15 06:28] LABS: Hematocrit 29.4 % (35-45); Hemoglobin 9.9 g/dL (11.5-14.3); Mean Corpuscular Hemoglobin 29.4 pg (27-33); Mean Corpuscular Hgb Conc 33.5 g/dL (31-36); Mean Corpuscular Volume 87.8 fL (80-97); Mean Platelet Volume 7.1 fL (7.5-11.2); Platelet Count 150 10^3/uL (150-450); Red Blood Count 3.35 10^6/uL (3.63-4.92); Red Cell Distribution Width 14.5 % (12-17); White Blood Count 8.6 10^3/uL (3.8-11.8)
[2022-09-15 06:47] LABS: Calcium 8.6 mg/dL (8.6-10.3); Creatinine, Serum 1.65 mg/dL (0.51-0.95); Magnesium 2.2 mg/dL (1.9-2.7); Potassium 3.6 mmol/L (3.5-5.0); eGFR CKD-EPI 32.8 (>60)
[2022-09-15 07:06] LABS: ABS Basophils 0.1 10^3/uL (0.0-0.1); ABS Eosinophils 0.2 10^3/uL (0.0-0.5); ABS Lymphocytes 1.7 10^3/uL (1.0-4.8); ABS Monocytes 1.1 10^3/uL (0.0-0.9); ABS Neutrophils 5.5 10^3/uL (1.5-7.6); ABS Nucleated RBC 0.03 10^3/ul; Eosinophil % 1.8 %; Lymphocyte % 19.6 %; Nucleated Red Blood Cells % 0.3 /100 WBC (0.0-0.4)
[2022-09-15] MEDS: Magnesium Hydroxide LIQ 30 ML UDC PO SCH (10:02)
[2022-09-15] MEDS: CMCS:Darifenacin 15 mg ER TAB (NF) PO SCH (10:03)
[2022-09-15] MEDS: Furosemide 40 mg/4 ml IV VIAL IV SCH (10:06)
[2022-09-15] MEDS ORDERED: Lactated Ringers 1000 ml BAG 500 ML IV ONE (17:04)
[2022-09-15] MEDS: KCL 20 MEQ/100 ML IVPREMIX 20 MEQ/100 ML BAG IV SCH ×2 (18:39→23:03)
[2022-09-16 07:00] LABS: Hematocrit 28.4 % (35-45); Hemoglobin 9.5 g/dL (11.5-14.3); Mean Corpuscular Hemoglobin 29.8 pg (27-33); Mean Corpuscular Hgb Conc 33.3 g/dL (31-36); Mean Corpuscular Volume 89.6 fL (80-97); Mean Platelet Volume 6.6 fL (7.5-11.2); Platelet Count 159 10^3/uL (150-450); Red Blood Count 3.17 10^6/uL (3.63-4.92); Red Cell Distribution Width 14.7 % (12-17); White Blood Count 8.7 10^3/uL (3.8-11.8)
[2022-09-16 07:14] LABS: Calcium 8.4 mg/dL (8.6-10.3); Creatinine, Serum 1.48 mg/dL (0.51-0.95); Potassium 4.2 mmol/L (3.5-5.0); eGFR CKD-EPI 37.4 (>60)
[2022-09-16 07:20] LABS: ABS Lymphocytes 1.5 10^3/uL (1.0-4.8); ABS Neutrophils 5.7 10^3/uL (1.5-7.6)
[2022-09-16 07:21] LABS: ABS Basophils 0.1 10^3/uL (0.0-0.1); ABS Eosinophils 0.2 10^3/uL (0.0-0.5); ABS Monocytes 1.2 10^3/uL (0.0-0.9); ABS Nucleated RBC 0.01 10^3/ul; Eosinophil % 2.6 %; Lymphocyte % 17.5 %; Nucleated Red Blood Cells % 0.1 /100 WBC (0.0-0.4)
[2022-09-16] MEDS: Furosemide 40 mg/4 ml IV VIAL IV SCH (09:43)
[2022-09-16] MEDS: CMCS:Darifenacin 15 mg ER TAB (NF) PO SCH (09:43)
[2022-09-17] MEDS: CMCS:Darifenacin 15 mg ER TAB (NF) PO SCH (10:31)
[2022-09-17] MEDS: Furosemide 40 mg/4 ml IV VIAL IV SCH (10:31)
[2022-09-18] MEDS: Furosemide 40 mg/4 ml IV VIAL IV SCH (10:48)
[2022-09-18] MEDS: CMCS:Darifenacin 15 mg ER TAB (NF) PO SCH (10:53)
[2022-09-18] MEDS: Senna TAB 8.6 mg TAB PO PRN (21:11)
[2022-09-19] MEDS: LORazepam 2 mg VIAL 1 ml IV PUSH PRN ×2 (01:02→23:57)
[2022-09-19] MEDS: CMCS:Darifenacin 15 mg ER TAB (NF) PO SCH (08:26)
[2022-09-19] MEDS ORDERED: NS 0.9% 500 ml BAG 500 ML IV ONE (13:05)
[2022-09-19 14:19] LABS: Ferritin 178.9 ng/mL (11-307)
[2022-09-19] MEDS: Senna TAB 8.6 mg TAB PO PRN (20:55)
[2022-09-20 06:12] LABS: Calcium 8.2 mg/dL (8.6-10.3); Creatinine, Serum 1.36 mg/dL (0.51-0.95); Potassium 4.2 mmol/L (3.5-5.0); eGFR CKD-EPI 41.4 (>60)
[2022-09-20] MEDS: LORazepam 2 mg VIAL 1 ml IV PUSH PRN ×2 (09:25→23:52)
[2022-09-20] MEDS: Iron Sucrose 200 MG in NS 0.9% 100 ml BAG 100 ML IVPB SCH (09:26)
[2022-09-20] MEDS: CMCS:Darifenacin 15 mg ER TAB (NF) PO SCH (09:27)
[2022-09-21] MEDS: Iron Sucrose 200 MG in NS 0.9% 100 ml BAG 100 ML IVPB SCH (09:25)
[2022-09-21] MEDS: CMCS:Darifenacin 15 mg ER TAB (NF) PO SCH (09:26)
[2022-09-21] MEDS: LORazepam 2 mg VIAL 1 ml IV PUSH PRN (11:43)
[2022-09-22] MEDS: LORazepam 2 mg VIAL 1 ml IV PUSH PRN (04:59)
[2022-09-22] MEDS: Iron Sucrose 200 MG in NS 0.9% 100 ml BAG 100 ML IVPB SCH (10:03)
[2022-09-22] MEDS: CMCS:Darifenacin 15 mg ER TAB (NF) PO SCH (10:07)
[2022-09-22] MEDS ORDERED: Lorazepam PYXIS KEY PRN (14:20)
[2022-09-22] MEDS ORDERED: LORazepam 2 mg VIAL 1 ml IV PUSH ONE (14:20)
[2022-09-23 09:37] VITALS: BP 118/68
[2022-09-23] MEDS: Iron Sucrose 200 MG in NS 0.9% 100 ml BAG 100 ML IVPB SCH (10:23)
== END 2022-09-23 14:30 | disposition home or self-care (01) | DRG 189 ==
LOC: ED 09:34 → EDHOLD 09:34 → SUATTDRO 08-26 00:15 → MEDTELE 08-26 01:10 → SUATTDRO 08-26 09:00 → ICU 09-02 21:11 → MED 09-07 23:01 → ICU 09-12 01:57 → MED 09-13 18:07
PROVIDERS: ADMIT Student in an Organized Health Care Education/Training Program; ATTEND Internal Medicine